=== PATIENT | male | born 1985 | race Two or more races ===

== ENCOUNTER 2016-07-25 12:40 | Emergency (ER) | payer SELFPAY ==
[2016-07-25 13:33] LABS: BASOPHILS % (AUTO) 1 % (0-3); EOSINOPHILS % (AUTO) 1 % (0-9); HEMATOCRIT 45 % (39-53); MEAN CORPUSCULAR HGB CONC 34.3 gm/dl (32.0-36.0); MONOCYTES % (AUTO) 10.5 % (0-12); NEUTROPHILS % (AUTO) 67.7 % (37-80)
[2016-07-25 13:35] VITALS: BP 135/83; PULSE 79; RESP 16; TEMP 98.6; O2SAT 97
[2016-07-25 13:41] LABS: MEAN CORPUSCULAR VOLUME 81 fL (80-100)
[2016-07-25 13:59] LABS: ALBUMIN 4.2 gm/dl (3.4-5.0); ALT 52 IU/L (14-63); GLOM FILT RATE 78 mL/min (>60); POTASSIUM 3.4 mMol/L (3.5-5.1); SODIUM 142 mMol/L (136-145); THYROID STIMULATING HORMONE 2.008 uU/ml (0.358-3.740)
[2016-07-25 14:45] LABS: AMPHETAMINES POSITIVE (NEGATIVE); METHADONE NEGATIVE (NEGATIVE); OPIATES(OP13) NEGATIVE (NEGATIVE); OXYCODONE(OXY) NEGATIVE (NEGATIVE); PROPOXYPHENE(PPX) NEGATIVE (NEGATIVE); TRICYCLIC ANTIDEPRESSANTS NEGATIVE (NEGATIVE)
== END 2016-07-25 17:50 | disposition short-term general hospital (02) | DRG 885 ==
LOC: ED 12:40
DX: F23 Brief psychotic disorder (principal)
CPT/HCPCS: 36415; 80053; 80305; 80307; 84443; 85025; 99282; 99284